=== PATIENT | male | born 2005 | race Caucasian/White ===

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

== ENCOUNTER 2024-08-10 16:12 | Emergency (ER) | payer BC, SELFPAY ==
[2024-08-10 16:17] VITALS: BP 142/79; PULSE 94; RESP 14; TEMP 37.1; O2SAT 99; BMI 38.0
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
[2024-08-10] MEDS: ketorolac 60 mg/2 mL INJ IM (16:42)
[2024-08-10] MEDS: orphenadrine 30 mg/mL Inj 2 mL 60 MG IM (16:42)
--- NOTE | 2024-08-10 17:25 | ED_ITS ---
Documented by User: FRANCIS De Souza 08/10/24 17:53 HPI - Back Pain/Injury General: Chief Complaint: Back Pain/Injury Stated Complaint: back pain Time Seen by Provider: 08/10/24 16:25 Source: patient Mode of arrival: ambulatory Limitations: no limitations History of Present Illness: Patient is a 18-year-old male who presents the emergency department complaining of left lower back pain radiating to his left leg over the past week. Initially was seen in urgent care, was prescribed muscle relaxer, steroids, and ibuprofen. 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 No new trauma since. States the pain seems to be more midline as opposed to left lower back. No bowel or bladder incontinence. No history of back surgeries. No other concerning symptoms or historical factors reported at this time. MD elicited complaint: back pain Pertinent past history: prior back pain Onset (ago): week(s) Timing: constant Severity: moderate Similar Symptoms Previously: Yes Location: lumbar spine and left lower back Radiation: left upper leg Exacerbating factors: movement Relieving factors: none Associated symptoms: Deny abdominal pain, chills, fever(s), nausea or vomiting Related Data Previous Rx's Medication Instructions Recorded ibuprofen 800 mg tablet 800 mg PO Q8H PRN pain #30 tabs 08/03/24 methocarbamol 750 mg tablet 750 mg PO Q8H PRN pain #30 tabs 08/03/24 prednisone 20 mg tablet 60 mg (3 x 20 mg) PO DAILY 5 days 08/03/24 #15 tabs Allergies Allergy/AdvReac Type Severity Reaction Status Date / Time amoxicillin Allergy ALGY-Hives Verified 08/03/24 14:57 Review of Systems General: Reports: 10 or more systems reviewed and unremarkable except in HPI and below Const: Denies: fever(s) or chills Card: Denies: chest pain Resp: Denies: dyspnea or productive cough GI: Denies: abdominal pain, nausea, vomiting or diarrhea : Denies: flank pain Musc: Reports: back pain and extremity pain (Left lower extremity); Denies: neck pain, extremity swelling, joint pain, joint swelling, joint redness, joint warmth, limited range of motion or muscle weakness Skin/Breast: Denies: rash Neuro: Denies: headache(s), numbness in extremities or weakness in extremities PFSH ED PFSH: Medical History Psychiatric care No pertinent family history Surgical History No pertinent past surgical history Social History Smoking and tobacco/nicotine status: current every day tobacco/nicotine user e- cigarettes Physical Exam Const: COMMON NORMALS: no acute distress, patient oriented x3, no limitations, healthy appearing, alert and well nourished HENMT: COMMON NORMALS: normocephalic and atraumatic HEAD & SCALP: normocephalic and atraumatic Neck/C-Spine: COMMON NORMALS: full ROM, supple and no meningeal signs Resp: COMMON NORMALS: normal respiratory effort, No use of accessory muscles and clear to auscultation bilaterally AUSCULTATION: clear to auscultation bilaterally Cardio: COMMON NORMALS: regular rate and regular rhythm RATE: regular rate RHYTHM: regular rhythm Back/Pelvis: OTHER: No signs of trauma, bruising, or other abnormalities. Mild reproducible tenderness to palpation of the lumbar spine as well as the left paralumbar muscles. Extremity: COMMON NORMALS: normal to inspection, full ROM, capillary refill normal, no joint enlargement and no clubbing, cyanosis or edema Neuro: COMMON NORMALS: patient oriented x3, moves all extremities, no focal motor deficits, no sensory deficits noted and deep tendon reflexes 2+ bilaterally SENSORIUM/ORIENTATION: Yes alert MENINGEAL SIGNS: Yes no meningeal signs Skin: COMMON NORMALS: no rashes or lesions noted GENERAL SKIN EXAM: no rashes or lesions noted Course Vital Signs: Vital signs: Vital Signs Temperature 98.7 F 08/10/24 16:17 Pulse Rate 87 08/10/24 17:38 Respiratory Rate 14 08/10/24 16:17 Blood Pressure 133/81 08/10/24 17:38 Pulse Oximetry 99 08/10/24 17:38 Oxygen Delivery Me thod Room Air 08/10/24 16:17 MDM - Back Pain/Injury Medical Decision Making Patient presenting for low back pain, seen in urgent care a week ago, stating pain has simply not gotten better. Was prescribed Robaxin, prednisone, and ibuprofen, has been taking this but has continued to work his job. Likely he has not allowed time to rest from a lumbar strain, x-ray obtained here not demonstrate any acute findings. Will have him continue taking his medications at home, and will provide a work note allowing him to rest and recover properly. Return precautions given. Labs Radiology Impressions Lumbar Spine X-Ray 08/10/24 16:35 IMPRESSION: No acute findings. XR interpretation done by ED provider, pending radiology final review ED provider radiology interpretation(s): X-ray lumbar spine not demonstrating any acute fractures or malalignment. Discharge Plan Discharge Patient Disposition: Home Clinical Impression: Lumbar radiculopathy Condition: Stable Prescriptions: No Action methocarbamol 750 mg tablet 750 mg PO Q8H PRN (Reason: pain) Qty: 30 0RF prednisone 20 mg tablet 60 mg PO DAILY 5 Days Qty: 15 0RF ibuprofen 800 mg tablet 800 mg PO Q8H PRN (Reason: pain) Qty: 30 0RF Discharge Orders: Discharge ED (Routine); Ordered 08/10/24 Ordered By: Eugene Persaud Patient Instructions: Low Back Strain (ED), Lumbar Radiculopathy (ED) Activity Restrictions/Additional Instructions: Continue taking prescribed medications. Rest and recovery. Work note provided. Apply heat to your low back. Avoid any heavy lifting or bending while resting. Return with any new or concerning symptoms. Stand Alone Forms: Work/School Release Coding Level of Care Code ED Assistant Manager Quality Management for Chg Fwd Documented by User: Franklin Paris DO 08/11/24 14:15 HPI - Back Pain/Injury General: Chief Complaint: Back Pain/Injury Stated Complaint: back pain Time Seen by Provider: 08/10/24 16:25 Related Data Previous Rx's Medication Instructions Recorded ibuprofen 800 mg tablet 800 mg PO Q8H PRN pain #30 tabs 08/03/24 methocarbamol 750 mg tablet 750 mg PO Q8H PRN pain #30 tabs 08/03/24 prednisone 20 mg tablet 60 mg (3 x 20 mg) PO DAILY 5 days 08/03/24 #15 tabs Allergies Allergy/AdvReac Type Severity Reaction Status Date / Time amoxicillin Allergy ALGY-Hives Verified 08/03/24 14:57 PFSH ED PFSH: Medical History Psychiatric care No pertinent family history Surgical History No pertinent past surgical history Social History Smoking and tobacco/nicotine status: current every day tobacco/nicotine user e- cigarettes Course Vital Signs: Vital signs: Vital Signs Temperature 98.7 F 08/10/24 16:17 Pulse Rate 87 08/10/24 17:38 Respiratory Rate 14 08/10/24 16:17 Blood Pressure 133/81 08/10/24 17:38 Pulse Oximetry 99 08/10/24 17:38 Oxygen Delivery Me thod Room Air 08/10/24 16:17 MDM - Back Pain/Injury Medical Decision Making Patient presenting for low back pain, seen in urgent care a week ago, stating pain has simply not gotten better. Was prescribed Robaxin, prednisone, and ibuprofen, has been taking this but has continued to work his job. Likely he has not allowed time to rest from a lumbar strain, x-ray obtained here not demonstrate any acute findings. Will have him continue taking his medications at home, and will provide a work note allowing him to rest and recover properly. Return precautions given. Chart reviewed Labs Radiology Impressions Lumbar Spine X-Ray 08/10/24 16:35 IMPRESSION: No acute findings. Discharge Plan Discharge Patient Disposition: Home Clinical Impression: Lumbar radiculopathy Condition: Stable Prescriptions: No Action methocarbamol 750 mg tablet 750 mg PO Q8H PRN (Reason: pain) Qty: 30 0RF prednisone 20 mg tablet 60 mg PO DAILY 5 Days Qty: 15 0RF ibuprofen 800 mg tablet 800 mg PO Q8H PRN (Reason: pain) Qty: 30 0RF Discharge Orders: Discharge ED (Routine); Ordered 08/10/24 Ordered By: Eugene Persaud Patient Instructions: Low Back Strain (ED), Lumbar Radiculopathy (ED) Activity Restrictions/Additional Instructions: Continue taking prescribed medications. Rest and recovery. Work note provided. Apply heat to your low back. Avoid any heavy lifting or bending while resting. Return with any new or concerning symptoms. Stand Alone Forms: Work/School Release Coding Level of Care Code ED Assistant Manager Quality Management for Reginaldo Shah
[2024-08-10 17:38] VITALS: BP 133/81; PULSE 87; O2SAT 99
== END 2024-08-10 17:39 | disposition home or self-care (01) ==
PROVIDERS: Emergency Provider Physician Assistant
DX: M54.16 Radiculopathy, lumbar region (principal)
CPT/HCPCS: 72100; 96372; 99284; J1885; J2360

== ENCOUNTER 2024-10-13 02:04 | Emergency (ER) | payer OTHER, SELFPAY ==
[2024-10-13 02:12] VITALS: BP 155/87; PULSE 68; RESP 16; TEMP 36.6; O2SAT 95; BMI 34.7
--- NOTE | 2024-10-13 02:22 | W.ED.PSYCHS ---
HPI - Psych General: Chief Complaint: Psychiatric Symptoms Stated Complaint: Si Time Seen by Provider: 10/13/24 02:14 History of Present Illness: 18-year-old male patient called his mother earlier because he was having a stress-induced anxiety attack . He was quite anxious, having trouble breathing, etc. Symptoms are essentially resolved now. He admits to marijuana use. Denies other substances. He does not take anything for anxiety. No other health problems. Related Data Previous Rx's Medication Instructions Recorded ibuprofen 800 mg tablet 800 mg PO Q8H PRN pain #30 tabs 08/03/24 methocarbamol 750 mg tablet 750 mg PO Q8H PRN pain #30 tabs 08/03/24 Allergies Allergy/AdvReac Type Severity Reaction Status Date / Time amoxicillin Allergy ALGY-Hives Verified 10/13/24 02:13 ON LICENSE OF [facility] ED PFSH: Medical History Psychiatric care No pertinent family history Surgical History No pertinent past surgical history Social History Smoking and tobacco/nicotine status: current every day tobacco/nicotine user e-cigarettes Physical Exam Const: GENERAL APPEARANCE: cooperative and anxious; not ill appearing and not frail appearing HENMT: COMMON NORMALS: normocephalic, atraumatic and Normal external nose present HEAD & SCALP: normocephalic and atraumatic FACE & SINUS: normal facial exam and face symmetric NOSE: Normal external nose present Eye: COMMON NORMALS: Equal, round and reactive pupils present and EOMs intact bilaterally PUPIL: Yes Equal, round and reactive pupils present Neck/C-Spine: GENERAL: Yes trachea midline Chest: CHEST: Yes Symmetrical chest wall rise Resp: COMMON NORMALS: normal respiratory effort, No retractions, No use of accessory muscles and clear to auscultation bilaterally AUSCULTATION: clear to auscultation bilaterally Cardio: COMMON NORMALS: regular rate and regular rhythm RATE: regular rate RHYTHM: regular rhythm GI: COMMON NORMALS: Normal to inspection, nondistended, normoactive bowel sounds present Extremity: COMMON NORMALS: no pedal edema Neuro: KATHERINE COMA SCALE: document GCS findings [place] coma scale eye opening: Spontaneous [place] coma scale verbal response: Orientated [place] coma scale motor response: Obey commands Katherine coma scale total score: 15 SENSORY EXAM: Yes extremities (intact) Psych: COMMON NORMALS: speech normal SPEECH: Yes normal speech Skin: COMMON NORMALS: no rashes or lesions noted GENERAL SKIN EXAM: no rashes or lesions noted Course Vital Signs: Vital signs: Vital Signs Temperature 97.8 F 10/13/24 02:12 Pulse Rate 57 L 10/13/24 04:05 Respiratory Rate 16 10/13/24 02:12 Blood Pressure 118/56 10/13/24 04:05 Pulse Oximetry 97 10/13/24 04:05 Oxygen Delivery Me thod Room Air 10/13/24 02:12 MDM - Psych Medical Decision Making This patient is not suicidal or homicidal. He does not wish to be admitted. His laboratory is not remarkable. He will be discharged. Case management will be asked to make the patient an outpatient follow-up appointment with [facility]. Lab Data 10/13/24 03:00 10/13/24 03:00 Laboratory Results WBC 11.98 10^3/uL (4.5-13.0) 10/13/24 03:00 RBC 5.14 10^6/uL (3.85-5.65) 10/13/24 03:00 Hgb 14.50 g/dL (13.2-15.6) 10/13/24 03:00 Hct 41.7 % (37-53) 10/13/24 03:00 MCV 81.1 fl (82-101) L 10/13/24 03:00 MCH 28.2 pg (27-33) 10/13/24 03:00 MCHC 34.8 g/dL (30-55) 10/13/24 03:00 RDW 12.7 % (12.1-15.1) 10/13/24 03:00 Plt Count 261 10^3/cmm (157-399) 10/13/24 03:00 MPV 9.9 fL (7.4-10.4) 10/13/24 03:00 Neut % (Auto) 57.6 % 10/13/24 03:00 Lymph % (Auto) 27.0 % 10/13/24 03:00 Randolph % (Auto) 6.3 % 10/13/24 03:00 Eos % (Auto) 7.9 % 10/13/24 03:00 Baso % (Auto) 0.8 % 10/13/24 03:00 Neut # (Auto) 6.89 10^3/uL (1.8-8.0) 10/13/24 03:00 Lymph # (Auto) 3.2 10^3/uL (1.5-6.5) 10/13/24 03:00 Randolph # (Auto) 0.8 10^3/uL (0.2-0.9) 10/13/24 03:00 Eos # (Auto) 1.0 10^3/uL (0.0-0.8) H 10/13/24 03:00 Baso # (Auto) 0.1 10^3/uL (0.0-0.1) 10/13/24 03:00 Nucleated RBC % (auto) 0 % 10/13/24 03:00 Nucleated RBCs # 0.0 /100WBC 10/13/24 03:00 Sodium 141 mmol/L (136-145) 10/13/24 03:00 Potassium 3.6 mmol/L (3.5-5.1) 10/13/24 03:00 Chloride 103 mmol/L (98-107) 10/13/24 03:00 Carbon Dioxide 25 mmol/L (22-29) 10/13/24 03:00 Anion Gap 16.6 (5-19) 10/13/24 03:00 BUN 10 mg/dL (6-20) 10/13/24 03:00 Creatinine 0.8 mg/dL (0.7-1.2) 10/13/24 03:00 GFR Calculation 123.2 mL/min (90-130) 10/13/24 03:00 Glucose 128 mg/dL (65-115) H 10/13/24 03:00 Calculated Osmolality 293 mOsm/kg (285-295) 10/13/24 03:00 Calcium 9.3 mg/dL (8.5-10.5) 10/13/24 03:00 Total Bilirubin 0.3 mg/dL (0.15-1.2) 10/13/24 03:00 AST 22 U/L (0-40) 10/13/24 03:00 ALT 32 U/L (0-41) 10/13/24 03:00 Alkaline Phosphatase 60 U/L (40-130) 10/13/24 03:00 Total Protein 7.4 g/dL (6.6-8.7) 10/13/24 03:00 Albumin 4.3 g/dL (3.5-5.2) 10/13/24 03:00 Globulin 3.1 g/dL (1.3-4.6) 10/13/24 03:00 Urine Color Yellow (Yellow) 10/13/24 03:00 Urine Appearance Clear (CLEAR) 10/13/24 03:00 Urine pH 6.0 (5-7) 10/13/24 03:00 Ur Specific [place] 1.031 (1.005-1.030) H 10/13/24 03:00 Urine Protein Negative (Negative) 10/13/24 03:00 Urine Glucose (UA) Negative (Normal) 10/13/24 03:00 Urine Ketones Trace (Negative) 10/13/24 03:00 Urine Blood Negative (Negative) 10/13/24 03:00 Urine Nitrate Negative (Negative) 10/13/24 03:00 Urine Bilirubin Negative (Negative) 10/13/24 03:00 Urine Urobilinogen 1.0 mg/dL (Negative) 10/13/24 03:00 Ur Leukocyte Esterase Negative (Negative) 10/13/24 03:00 Urine RBC 0-2 /hpf (0-2) 10/13/24 03:00 Urine WBC 0-5 /hpf (0-5) 10/13/24 03:00 Ur Squamous Epith Cells 0-5 /hpf (0-5) 10/13/24 03:00 Amorphous Sediment Not Reportable 10/13/24 03:00 Urine Bacteria None seen /hpf (NONE) 10/13/24 03:00 Hyaline Casts 2.87 /lpf 10/13/24 03:00 Salicylates < 0.3 mg/dL (3-10) L 10/13/24 03:00 Urine Opiates Screen Negative ng/mL (Negative) 10/13/24 03:00 Acetaminophen < 5.0 ug/mL (10-30) L 10/13/24 03:00 Ur Barbiturates Screen Negative ng/mL (Negative) 10/13/24 03:00 Ur Phencyclidine Scrn Negative ng/mL (Negative) 10/13/24 03:00 Ur Amphetamines Screen Negative ng/mL (Negative) 10/13/24 03:00 U Benzodiazepines Scrn Negative ng/mL (Negative) 10/13/24 03:00 Urine Cocaine Screen Negative ng/mL (Negative) 10/13/24 03:00 U Marijuana (THC) Screen Positive ng/mL (Negative) H 10/13/24 03:00 Ethyl Alcohol < 10 mg/dL (0-10) 10/13/24 03:00 No radiology studies performed this visit Discharge Plan Discharge Patient Disposition: Home Clinical Impression: Acute anxiety Condition: Stable Prescriptions: No Action methocarbamol 750 mg tablet 750 mg PO Q8H PRN (Reason: pain) Qty: 30 0RF ibuprofen 800 mg tablet 800 mg PO Q8H PRN (Reason: pain) Qty: 30 0RF Discharge Orders: Discharge ED (Routine); Ordered 10/13/24 Ordered By: Herbie Erazo Patient Instructions: Anxiety (ED), Opioid Safety, Pain Management Activity Restrictions/Additional Instructions: Return for any thoughts or wishes to harm your self or anyone else. Case management has been asked to make you an appointment for follow-up with the behavioral health clinic. You should hear from them this week. Coding Level of Care Code ED It Help Desk Associate for Reginaldo Shah
[2024-10-13 03:16] LABS: Basophils # 0.1 10^3/uL (0.0-0.1); Basophils % 0.8 %; Eosinophils % 7.9 %; Hematocrit 41.7 % (37-53); Lymphocytes # 3.2 10^3/uL (1.5-6.5); Mean Corpuscular HGB Conc 34.8 g/dL (30-55); Mean Corpuscular Hemoglobin 28.2 pg (27-33); Mean Corpuscular Volume 81.1 fl (82-101); Mean Platelet Volume 9.9 fL (7.4-10.4); Monocytes # 0.8 10^3/uL (0.2-0.9); Monocytes % 6.3 %; Neutrophils # 6.89 10^3/uL (1.8-8.0); Neutrophils % 57.6 %; Nucleated Red Blood Cells % 0 %; Platelet Count 261 10^3/cmm (157-399); Red Blood Count 5.14 10^6/uL (3.85-5.65); Red Cell Distribution Width 12.7 % (12.1-15.1); White Blood Count 11.98 10^3/uL (4.5-13.0)
[2024-10-13 03:19] LABS: Bilirubin Urine Negative (Negative); Blood Urine Negative (Negative); Glucose Urine UA Negative (Normal); Ketones Urine Trace (Negative); Leukocyte Esterase Urine Negative (Negative); Nitrate Urine Negative (Negative); Protein Urine Negative (Negative); Urine Appearance Clear (CLEAR); Urine Color Yellow (Yellow)
[2024-10-13 03:24] LABS: Bacteria Urine None Seen /hpf; Hyaline Casts Urine 2.87 /lpf; RBC Urine 0-2 /hpf (0-2); Squamous Epithelial Cell Urine 0-5 /hpf (0-5); WBC Urine 0-5 /hpf (0-5)
[2024-10-13 03:26] LABS: Amphetamines Screen Urine Negative (Negative); Barbiturates Screen Urine Negative (Negative); Benzodiazepines Screen Urine Negative (Negative); Cocaine Screen Urine Negative (Negative); Opiate Screen Urine Negative (Negative); PCP Screen Urine Negative (Negative); THC Screen Urine Positive (Negative)
[2024-10-13 03:36] LABS: Alanine Aminotransferase 32 U/L (0-41); Albumin Level 4.3 g/dL (3.5-5.2); Alkaline Phosphatase 60 U/L (40-130); Anion Gap 16.6 (5-19); Aspartate Amino Transferase 22 U/L (0-40); Blood Urea Nitrogen 10 mg/dL (6-20); Calcium 9.3 mg/dL (8.5-10.5); Carbon Dioxide 25 mmol/L (22-29); Chloride 103 mmol/L (98-107); Creatinine Clr Calc Pharmacy 204.8083; Globulin 3.1 g/dL (1.3-4.6); Glomerular Filtration Rate 123.2 mL/min (90-130); Glucose 128 mg/dL (65-115); Osmolality Calculated 293 mOsm/kg (285-295); Potassium 3.6 mmol/L (3.5-5.1); Sodium 141 mmol/L (136-145); Total Bilirubin 0.3 mg/dL (0.15-1.2); Total Protein 7.4 g/dL (6.6-8.7)
[2024-10-13 03:38] LABS: Acetaminophen < 5.0 ug/mL (10-30); Alcohol Level < 10 mg/dL (0-10); Salicylate < 0.3 mg/dL (3-10)
[2024-10-13 03:46] LABS: Specific Gravity, Urine 1.031 (1.005-1.030)
[2024-10-13 04:05] VITALS: BP 118/56; PULSE 57; O2SAT 97
--- NOTE | 2024-10-13 07:42 | DCPLANNER ---
messaged [facility] scheduling for er f/u
== END 2024-10-13 04:04 | disposition home or self-care (01) ==
PROVIDERS: Emergency Provider Emergency Medicine
DX: F41.8 Other specified anxiety disorders (principal); F17.290 Nicotine dependence, other tobacco product, uncomplicated
CPT/HCPCS: 80053; 80306; 80307; 81001; 85025; 99283

== ENCOUNTER 2024-10-21 16:12 | Emergency (ER) | payer OTHER, SELFPAY | END 2024-10-21 16:30 | disposition left against medical advice (07) | PROVIDERS: Emergency Provider Family Medicine | DX: Z53.21 Procedure and treatment not carried out due to patient leaving prior to being seen by health care provider (principal) | CPT/HCPCS: 87400 ==

== ENCOUNTER 2024-10-23 13:25 | Emergency (ER) | payer OTHER, SELFPAY ==
[2024-10-23 13:40] VITALS: BP 130/92; PULSE 95; RESP 20; TEMP 37.1; O2SAT 97
[2024-10-23 14:56] LABS: Influenza A POSITIVE (Negative); Influenza B NEGATIVE (Negative); Respiratory Syncytial Virus Ce NEGATIVE (Negative); SARS-CoV-2 PCR NEGATIVE (Negative)
[2024-10-23] MEDS: ondansetron hcl ODT 4 mg Tab PO (16:44)
--- NOTE | 2024-10-23 17:09 | ED_ITS ---
HPI - Nausea/Vomiting/Diarrhea General: Chief complaint: Nausea/Vomiting/Diarrhea Stated complaint: fever,vomitting Time Seen by Provider: 10/23/24 15:52 Source: patient Mode of arrival: ambulatory Limitations: no limitations History of Present Illness: Patient is a 18-year-old male that presents to the emergency department with fever, nausea, vomiting and diarrhea. Patient also reports swollen lymph node in the right side of his throat. He states this began about 3 days ago. He went to the urgent care and they tested him for influenza and strep which were both negative at that time. He continues to have fever and bodyaches. He was prescribed doxycycline which she has been using but states with the nausea and vomiting with doxycycline has been making it worse. He presents to the emergen cy department for further evaluation and treatment. Associated nausea: Yes Associated symtoms: Reports nausea; Denies chest pain or dysuria Related Data Previous Rx's ?Medication ?Instructions ?Recorded ibuprofen 800 mg tablet 800 mg PO Q8H PRN pain #30 t abs 08/03/24 methocarbamol 750 mg tablet 750 mg PO Q8H PRN pain #30 tabs 08/03/24 doxycycline hyclate 100 mg capsule 100 mg PO BID 14 da ys #28 caps 10/21/24 ondansetron 4 mg disintegrating 4 mg PO .q6-8h PRN matt sea and 10/23/24 tablet vomiting #10 tabs Allergies Allergy/AdvReac Type Severity Reaction Status Date / Time amoxicillin Allergy ALGY-Hives Verified 10/21/24 12:17 Review of Systems General: Reports: 10 or more systems reviewed and unremarkable except in HPI and below Const: Reports: fever(s) (Up to 102) ENMT: Reports: other (Swollen gland in the right side of the neck) Card: Denies: chest pain Resp: Reports: non-productive cough; Denies: dyspnea or wheezing GI: Reports: nausea, vomiting and diarrhea; Denies: abdominal pain : Denies: difficulty urinating or dysuria Musc: Reports: other (Myalgias) Skin/Breast: Denies: rash or erythema Neuro: Denies: numbness in extremities or weakness in extremities PFS ED PFSH: Medical History Psychiatric care No pertinent family history Surgical History No pertinent past surgical history Social History Smoking and tobacco/nicotine status: never used tobacco/nicotine Physical Exam Const: COMMON NORMALS: no acute distress and patient oriented x3 GENERAL APPEARANCE: cooperative HENMT: COMMON NORMALS: normocephalic, atraumatic, external ears normal and TM's normal bilaterally HEAD & SCALP: normocephalic and atraumatic EXTERNAL EAR: Yes external ears normal TYMPANIC MEMBRANE: TM's normal bilaterally and other (Some cerumen in the left external ear canal that blocks most of the TM) MOUTH: Normal oral and palatal mucosa present THROAT: posterior oropharynx normal Eye: COMMON NORMALS: conjunctivae normal CONJUNCTIVA: Yes conjunctivae normal Neck/C-Spine: COMMON NORMALS: full ROM GENERAL: Yes lymphadenopathy (Right anterior cervical) and No torticollis Lymph: LYMPHATIC: lymphadenopathy (Right anterior cervical chain) Resp: COMMON NORMALS: normal respiratory effort, No retractions and clear to auscultation bilaterally AUSCULTATION: clear to auscultation bilaterally, no crackles, no rales, no rhonchi and no wheezes Cardio: COMMON NORMALS: regular rate and regular rhythm RATE: regular rate RHYTHM: regular rhythm GI: COMMON NORMALS: Soft to palpation and non-tender PALPATION: Yes Soft to palpation : COMMON NORMALS: Yes no CVA tenderness BLADDER/KIDNEY EXAM: Yes no CVA tenderness Back/Pelvis: COMMON NORMALS: no CVA tenderness and thoraco-lumbar ROM normal Extremity: COMMON NORMALS: normal to inspection, full ROM and no pedal edema Neuro: COMMON NORMALS: patient oriented x3 Psych: COMMON NORMALS: mental status grossly normal THOUGHT CONTENT: Yes Normal thought content present Skin: COMMON NORMALS: no rashes or lesions noted, no jaundice and no petechiae GENERAL SKIN EXAM: no rashes or lesions noted Course Vital Signs: Vital signs: Vital Signs Temperature 98.8 F 10/23/24 13:40 Pulse Rate 95 10/23/24 13:40 Respiratory Rate 20 H 10/23/24 13:40 Blood Pressure 130/92 10/23/24 13:40 Pulse Oximetry 97 10/23/24 13:40 MDM - Nausea/Vomiting/Diarrhea Medical Decision Making Patient was advised of the exam and lab findings. He did test positive for influenza A today. It has been about 3 days since his symptoms started days outside of the treatment window for Tamiflu. I recommended that he use the Zofran as directed and follow-up with a local doctor for further evaluation and treatment. I recommended that he rest, increase fluids and return to the emergency department with any worsening symptoms. The patient's heart rate is normal and his mucous membranes appear moist at this time. Oxygen saturation is 97% on room air. The patient expressed understanding. Differential Diagnosis Likely traveler's diarrhea, food poisoning and gastroenteritis (Influenza A) Lab Data I reviewed the patient's lab results. Laboratory Results Coronavirus (PCR) Negative (Negative) 10/23/24 13:45 Influenza A (PCR) Positive (Negative) 10/23/24 13:45 Influenza Type B (PCR) Negative (Negative) 10/23/24 13:45 RSV (PCR) Negative (Negative) 10/23/24 13:45 No radiology studies performed this visit Critical Care Time Critical Care Time: Critical Care Time: No Discharge Plan Discharge Patient Disposition: Home Clinical Impression: Influenza A, Acute cervical lymphadenitis, Nausea vomiting and diarrhea Condition: Stable Prescriptions: New ondansetron 4 mg tablet,disintegrating 4 mg PO .q6-8h PRN (Reason: nausea and vomiting) Qty: 10 0RF No Action methocarbamol 750 mg tablet 750 mg PO Q8H PRN (Reason: pain) Qty: 30 0RF ibuprofen 800 mg tablet 800 mg PO Q8H PRN (Reason: pain) Qty: 30 0RF doxycycline hyclate 100 mg capsule 100 mg PO BID 14 Days Qty: 28 0RF Discharge Orders: Discharge ED (Routine); Ordered 10/23/24 Ordered By: Calos Amezcua Discharge Diet: Advance as tolerated Discharge Activity: Increase activity as tolerated Patient Instructions: Opioid Safety, Pain Management, Influenza (ED), Acute Nausea and Vomiting (ED) Activity Restrictions/Additional Instructions: Take medications as directed. Your prescriptions were sent electronically to your preferred pharmacy. Rest, increase fluids. Follow-up with your clinic in 1 week for recheck. No work until fever free for 24 hours with no Tylenol or ibuprofen. Return to the emergency department with any worsening symptoms. Print Language: Yakut Coding Level of Care Code ED Route Process Administrator for Reginaldo Shah
[2024-10-23 17:25] VITALS: BP 114/59; PULSE 78; RESP 16; O2SAT 97
== END 2024-10-23 17:32 | disposition home or self-care (01) ==
PROVIDERS: Emergency Medicine; Emergency Provider Physician Assistant
DX: J10.1 Influenza due to other identified influenza virus with other respiratory manifestations (principal); L04.0 Acute lymphadenitis of face, head and neck; R11.2 Nausea with vomiting, unspecified; R19.7 Diarrhea, unspecified; Z11.52 Encounter for screening for COVID-19
CPT/HCPCS: 12345; 87637; 99283; Q0162